=== PATIENT | female | born 1960 ===

== ENCOUNTER 2018-01-30 08:04 | Inpatient (IN) ==
[~2018-01-30 08:04] MED LIST: ACETAMINOPHEN 325 MG TABLET PO PRN; ONDANSETRON 4 MG/2 ML VIAL IV PRN; traMADol 50 MG TABLET PO PRN
[2018-01-30 11:05] LABS: Basophils # 0.1 10*3/uL (0.0-0.2); Basophils % 0.7 % (0.0-0.8); Eosinophils # 0.3 10*3/uL (0.0-0.87); Eosinophils % 3.3 % (0.00-10.9); Hematocrit 24.1 VOL% (35.7-47.0); Hemoglobin 7.6 GM/DL (12.0-16.0); Immature Granulocytes % 1.6 %; Immature Granulocytes Absolute 0.12 #; Lymphocytes # 1.7 10*3/uL (1.4-4.0); Lymphocytes % 23.3 % (21.3-54.2); Mean Corpuscular HGB Conc 31.5 GM/DL (32-36); Mean Corpuscular Hemoglobin 31 PG (27-34); Mean Platelet Volume 10.8 FL (9.6-12.0); Monocytes # 0.6 10*3/uL (0.11-0.8); Monocytes % 7.8 % (1.7-12.7); Neutrophils # 4.7 10*3/uL (1.4-7.4); Neutrophils % 63.3 % (38.7-73.9); Platelet Count 187 T/CUMM (130-400); Red Blood Count 2.46 MC/CUMM (3.8-5.5); Red Cell Distribution Width 14.3 % (9.3-17.3); White Blood Count 7.5 T/CUMM (4-12)
[2018-01-30 11:50] LABS: Bilirubin,Total 0.4 MG/DL (0.2-1.0); Calcium 6.7 MG/DL (8.5-10.1); Osmolality,Calculated 314.7 MOS/KG (273-304); Potassium 4.4 MMOL/L (3.5-5.1)
[2018-01-30 12:40] LABS: Hepatitis A Ab IgM Quant 0.11 Index; Hepatitis A Ab IgM Result Negative (Negative); Hepatitis B Core IgM Quant 0.32 Index; Hepatitis B Core IgM Result Negative (Negative); Hepatitis B Surface Ag Quant < 0.10 Index; Hepatitis B Surface Ag Result Negative (Negative); Hepatitis C Virus Ab Quant 0.25 Index; Hepatitis C Virus Ab Result Negative (Negative)
[2018-01-30] MEDS ORDERED: LIDOCAINE 1% 50 ML VIAL ONE (12:49)
[2018-01-30] MEDS ORDERED: BUPIVACAINE 0.25% 50 ML VIAL ONE (12:49)
[2018-01-30] MEDS ORDERED: HEPARIN 5,000 UNIT/1 ML VIAL ONE (12:49)
[2018-01-30] MEDS ORDERED: ceFAZolin 1,000 MG in SYRINGE 1 EACH IV ONE (13:00)
[2018-01-30] MEDS ORDERED: ceFAZolin 1,000 MG VIAL ONE (13:13)
[2018-01-30] MEDS ORDERED: ONDANSETRON 4 MG/2 ML VIAL ONE (13:55)
[2018-01-30] MEDS ORDERED: fentaNYL 100 MCG/2 ML VIAL ONE (13:55)
[2018-01-30] MEDS ORDERED: MIDAZOLAM 2 MG/2 ML VIAL ONE (13:55)
[2018-01-30] MEDS ORDERED: HEPARIN 10,000 UNIT/10 ML VIAL IV PRN (16:50)
[2018-01-30] MEDS ORDERED: GLUCAGON 1 MG VIAL IM PRN (18:23)
[2018-01-30] MEDS ORDERED: DEXTROSE 50% 25 GM/50 ML VIAL IV PRN (18:23)
[2018-01-30] MEDS: INSULIN REGULAR 100 UNIT/ML SUBCUT SCH ×2 (18:36→21:25)
[2018-01-30] MEDS: LATANOPROST 0.005% OPH SOLN 2.5 ML BOTTLE BOTH EYES SCH (21:44)
[2018-01-31] MEDS: INSULIN REGULAR 100 UNIT/ML SUBCUT SCH ×4 (07:27→21:06)
[2018-01-31] MEDS: FUROSEMIDE 80 MG TABLET PO SCH (13:00)
[2018-01-31] MEDS ORDERED: EPOETIN ALFA 10,000 UNIT/1 ML VIAL SUBCUT ONE (13:32)
[2018-01-31] MEDS: LATANOPROST 0.005% OPH SOLN 2.5 ML BOTTLE BOTH EYES SCH (21:06)
[2018-02-01 07:29] VITALS: BP 137/70
[2018-02-01] MEDS: INSULIN REGULAR 100 UNIT/ML SUBCUT SCH ×3 (07:56→18:59)
[2018-02-01] MEDS: FUROSEMIDE 80 MG TABLET PO SCH (08:59)
== END 2018-02-01 21:00 | disposition home or self-care (01) | DRG 699 ==
LOC: N.3E 08:48
PROVIDERS: ADMIT Internal Medicine Nephrology; ATTEND Internal Medicine Nephrology

== ENCOUNTER 2018-03-06 11:15 | Inpatient (IN) ==
[2018-03-06] MEDS ORDERED: DEXTROSE 50% 25 GM/50 ML VIAL IV PRN (15:38)
[2018-03-06] MEDS ORDERED: GLUCAGON 1 MG VIAL IM PRN (15:38)
[2018-03-06 16:22] LABS: Basophils % 0.8 % (0.0-0.8); Eosinophils # 0.2 10*3/uL (0.0-0.87); Eosinophils % 4.2 % (0.00-10.9); Hematocrit 32.9 VOL% (35.7-47.0); Hemoglobin 10.6 GM/DL (12.0-16.0); Immature Granulocytes % 0.6 %; Immature Granulocytes Absolute 0.03 #; Lymphocytes % 37.2 % (21.3-54.2); Mean Corpuscular HGB Conc 32.2 GM/DL (32-36); Mean Corpuscular Hemoglobin 32 PG (27-34); Mean Corpuscular Volume 97.6 FL (87-102); Mean Platelet Volume 10.7 FL (9.6-12.0); Monocytes # 0.5 10*3/uL (0.11-0.8); Monocytes % 10.1 % (1.7-12.7); Neutrophils # 2.5 10*3/uL (1.4-7.4); Neutrophils % 47.1 % (38.7-73.9); Platelet Count 187 T/CUMM (130-400); Red Blood Count 3.37 MC/CUMM (3.8-5.5); Red Cell Distribution Width 15.5 % (9.3-17.3); White Blood Count 5.2 T/CUMM (4-12)
[2018-03-06 16:43] LABS: Alanine Aminotransferase 24 U/L (13-56); Albumin 2.6 G/DL (3.4-5.0); Alkaline Phosphatase 138 U/L (45-117); Aspartate Amino Transferase 22 U/L (0-37); Bilirubin,Total < 0.39 MG/DL (0.2-1.0); Blood Urea Nitrogen 41 MG/DL (7-18); Calcium 8.7 MG/DL (8.5-10.1); Glucose 488 MG/DL (74-106); Osmolality,Calculated 301.1 MOS/KG (273-304); Potassium 3.3 MMOL/L (3.5-5.1); Sodium 135 MMOL/L (136-145); Total Protein 7.2 G/DL (6.4-8.3)
[2018-03-06] MEDS ORDERED: HEPARIN 10,000 UNIT/10 ML VIAL IV SCH (17:00)
[2018-03-06] MEDS: INSULIN REGULAR 100 UNIT/ML SUBCUT SCH ×2 (18:17→20:25)
[2018-03-06] MEDS: CALCIUM ACETATE 667 MG CAPSULE PO SCH (18:18)
[2018-03-06] MEDS: DOCUSATE SODIUM 100 MG CAPSULE PO SCH (20:25)
[2018-03-06] MEDS: LATANOPROST 0.005% OPH SOLN 2.5 ML BOTTLE BOTH EYES SCH (20:25)
[2018-03-06] MEDS: GABAPENTIN 100 MG CAPSULE PO SCH (20:25)
[2018-03-06] MEDS: SIMVASTATIN 40 MG TABLET PO SCH (20:25)
[2018-03-07] MEDS ORDERED: PROPOFOL 200 MG/20 ML VIAL IV ONE (08:43)
[2018-03-07] MEDS ORDERED: SEVOFLURANE 1 UNIT/15 MINUTE INH ONE (08:43)
[2018-03-07] MEDS ORDERED: fentaNYL 100 MCG/2 ML VIAL ONE (08:43)
[2018-03-07] MEDS ORDERED: MIDAZOLAM 2 MG/2 ML VIAL ONE (08:43)
[2018-03-07] MEDS ORDERED: ONDANSETRON 4 MG/2 ML VIAL ONE (08:44)
[2018-03-07] MEDS ORDERED: MORPHINE 4 MG/1 ML VIAL IV PRN (09:06)
[2018-03-07] MEDS ORDERED: ONDANSETRON 4 MG/2 ML VIAL IV PRN (09:06)
[2018-03-07] MEDS ORDERED: MAGNESIUM HYDROXIDE SUSP 30 ML UDCUP PO PRN (09:06)
[2018-03-07] MEDS ORDERED: POLYVINYL ALCOHOL 1.4% OPH SOLN 15 ML BOTTLE BOTH EYES PRN (09:13)
[2018-03-07] MEDS: GABAPENTIN 100 MG CAPSULE PO SCH ×2 (10:41→21:22)
[2018-03-07] MEDS: CALCIUM ACETATE 667 MG CAPSULE PO SCH ×3 (10:41→17:50)
[2018-03-07] MEDS: MULTIVITAMIN (BEROCCA) TABLET PO SCH (10:41)
[2018-03-07] MEDS: FOLIC ACID 1 MG TABLET PO SCH (10:41)
[2018-03-07] MEDS: MULTIVITAMIN (CENTRUM) TABLET PO SCH (10:41)
[2018-03-07] MEDS: INSULIN GLARGINE 100 UNIT/ML SUBCUT SCH (10:41)
[2018-03-07] MEDS: INSULIN REGULAR 100 UNIT/ML SUBCUT SCH ×4 (10:46→21:23)
[2018-03-07] MEDS: PIPERACILLIN/TAZOBACTAM 3,375 MG in SODIUM CHLORIDE 0.9% 100 ML IV SCH ×2 (11:33→23:20)
[2018-03-07] MEDS: ASPIRIN EC 81 MG TABLET PO SCH (11:33)
[2018-03-07] MEDS: INSULIN LISPRO 100 UNIT/ML SUBCUT SCH ×2 (14:05→17:49)
[2018-03-07] MEDS ORDERED: VANCOMYCIN INJ 750 MG in SODIUM CHLORIDE 0.9% 250 ML IV PRN (19:26)
[2018-03-07] MEDS ORDERED: LATANOPROST 0.005% OPH SOLN 2.5 ML BOTTLE BOTH EYES SCH (21:00)
[2018-03-07] MEDS ORDERED: VANCOMYCIN INJ 1,750 MG in SODIUM CHLORIDE 0.9% 500 ML IV ONE (21:00)
[2018-03-07] MEDS: SIMVASTATIN 40 MG TABLET PO SCH (21:23)
[2018-03-07] MEDS: DOCUSATE SODIUM 100 MG CAPSULE PO SCH (21:23)
[2018-03-08] MEDS: LATANOPROST 0.005% OPH SOLN 2.5 ML BOTTLE BOTH EYES SCH ×2 (03:33→21:01)
[2018-03-08] MEDS ORDERED: VANCOMYCIN INJ 1,750 MG in SODIUM CHLORIDE 0.9% 500 ML IV ONE (04:30)
[2018-03-08] MEDS: INSULIN REGULAR 100 UNIT/ML SUBCUT SCH ×4 (07:39→21:01)
[2018-03-08] MEDS: INSULIN LISPRO 100 UNIT/ML SUBCUT SCH ×3 (07:39→16:13)
[2018-03-08 09:27] LABS: Hepatitis B Surface Ag Quant < 0.10 Index; Hepatitis B Surface Ag Result Negative (Negative)
[2018-03-08] MEDS: CALCIUM ACETATE 667 MG CAPSULE PO SCH ×3 (09:29→18:01)
[2018-03-08] MEDS: INSULIN GLARGINE 100 UNIT/ML SUBCUT SCH (10:29)
[2018-03-08] MEDS: MULTIVITAMIN (BEROCCA) TABLET PO SCH (12:32)
[2018-03-08] MEDS: ASPIRIN EC 81 MG TABLET PO SCH (12:32)
[2018-03-08] MEDS: MULTIVITAMIN (CENTRUM) TABLET PO SCH (12:32)
[2018-03-08] MEDS: PIPERACILLIN/TAZOBACTAM 3,375 MG in SODIUM CHLORIDE 0.9% 100 ML IV SCH ×2 (12:33→22:44)
[2018-03-08] MEDS: FOLIC ACID 1 MG TABLET PO SCH (12:33)
[2018-03-08] MEDS: GABAPENTIN 100 MG CAPSULE PO SCH ×2 (12:33→21:01)
[2018-03-08] MEDS ORDERED: VANCOMYCIN INJ 750 MG in SODIUM CHLORIDE 0.9% 250 ML IV ONE (18:00)
[2018-03-08] MEDS: DOCUSATE SODIUM 100 MG CAPSULE PO SCH (21:00)
[2018-03-08] MEDS: SIMVASTATIN 40 MG TABLET PO SCH (21:01)
[2018-03-09] MEDS ORDERED: ERGOCALCIFEROL 50,000 UNIT CAPSULE PO SCH (09:00)
[2018-03-09] MEDS: INSULIN LISPRO 100 UNIT/ML SUBCUT SCH ×3 (09:11→16:40)
[2018-03-09] MEDS: CALCIUM ACETATE 667 MG CAPSULE PO SCH ×3 (09:12→16:41)
[2018-03-09] MEDS: MULTIVITAMIN (CENTRUM) TABLET PO SCH (09:12)
[2018-03-09] MEDS: INSULIN REGULAR 100 UNIT/ML SUBCUT SCH ×4 (09:12→22:10)
[2018-03-09] MEDS: MULTIVITAMIN (BEROCCA) TABLET PO SCH (09:13)
[2018-03-09] MEDS: INSULIN GLARGINE 100 UNIT/ML SUBCUT SCH (09:13)
[2018-03-09] MEDS: ASPIRIN EC 81 MG TABLET PO SCH (09:13)
[2018-03-09] MEDS: FOLIC ACID 1 MG TABLET PO SCH (09:13)
[2018-03-09] MEDS: GABAPENTIN 100 MG CAPSULE PO SCH ×2 (09:13→22:09)
[2018-03-09] MEDS: PIPERACILLIN/TAZOBACTAM 3,375 MG in SODIUM CHLORIDE 0.9% 100 ML IV SCH ×2 (10:30→22:19)
[2018-03-09] MEDS: SIMVASTATIN 40 MG TABLET PO SCH (22:10)
[2018-03-09] MEDS: DOCUSATE SODIUM 100 MG CAPSULE PO SCH (22:10)
[2018-03-09] MEDS: LATANOPROST 0.005% OPH SOLN 2.5 ML BOTTLE BOTH EYES SCH (22:14)
[2018-03-10] MEDS: INSULIN REGULAR 100 UNIT/ML SUBCUT SCH ×4 (08:53→20:22)
[2018-03-10] MEDS: INSULIN LISPRO 100 UNIT/ML SUBCUT SCH ×3 (08:53→17:50)
[2018-03-10] MEDS: FOLIC ACID 1 MG TABLET PO SCH (08:54)
[2018-03-10] MEDS: MULTIVITAMIN (CENTRUM) TABLET PO SCH (08:54)
[2018-03-10] MEDS: ASPIRIN EC 81 MG TABLET PO SCH (08:54)
[2018-03-10] MEDS: INSULIN GLARGINE 100 UNIT/ML SUBCUT SCH (08:54)
[2018-03-10] MEDS: MULTIVITAMIN (BEROCCA) TABLET PO SCH (08:54)
[2018-03-10] MEDS: CALCIUM ACETATE 667 MG CAPSULE PO SCH ×3 (08:54→17:50)
[2018-03-10] MEDS: GABAPENTIN 100 MG CAPSULE PO SCH ×2 (08:55→20:22)
[2018-03-10] MEDS: PIPERACILLIN/TAZOBACTAM 3,375 MG in SODIUM CHLORIDE 0.9% 100 ML IV SCH ×2 (11:29→21:38)
[2018-03-10] MEDS: LATANOPROST 0.005% OPH SOLN 2.5 ML BOTTLE BOTH EYES SCH (20:23)
[2018-03-10] MEDS: SIMVASTATIN 40 MG TABLET PO SCH (20:23)
[2018-03-10] MEDS: DOCUSATE SODIUM 100 MG CAPSULE PO SCH (20:23)
[2018-03-11] MEDS: INSULIN LISPRO 100 UNIT/ML SUBCUT SCH ×3 (10:22→17:23)
[2018-03-11] MEDS: INSULIN REGULAR 100 UNIT/ML SUBCUT SCH ×4 (10:22→20:51)
[2018-03-11] MEDS: CALCIUM ACETATE 667 MG CAPSULE PO SCH ×3 (10:22→17:21)
[2018-03-11] MEDS: GABAPENTIN 100 MG CAPSULE PO SCH ×2 (10:43→20:51)
[2018-03-11] MEDS: MULTIVITAMIN (BEROCCA) TABLET PO SCH (10:44)
[2018-03-11] MEDS: amLODIPine 2.5 MG TABLET PO SCH (10:44)
[2018-03-11] MEDS: MULTIVITAMIN (CENTRUM) TABLET PO SCH (10:44)
[2018-03-11] MEDS: FOLIC ACID 1 MG TABLET PO SCH (10:44)
[2018-03-11] MEDS: ASPIRIN EC 81 MG TABLET PO SCH (10:45)
[2018-03-11] MEDS: INSULIN GLARGINE 100 UNIT/ML SUBCUT SCH (10:45)
[2018-03-11] MEDS: PIPERACILLIN/TAZOBACTAM 3,375 MG in SODIUM CHLORIDE 0.9% 100 ML IV SCH ×2 (11:41→21:27)
[2018-03-11] MEDS ORDERED: VANCOMYCIN INJ 750 MG in SODIUM CHLORIDE 0.9% 250 ML IV ONE (16:00)
[2018-03-11] MEDS: cloNIDine 0.1 MG TABLET PO PRN (19:06)
[2018-03-11] MEDS: DOCUSATE SODIUM 100 MG CAPSULE PO SCH (20:51)
[2018-03-11] MEDS: LATANOPROST 0.005% OPH SOLN 2.5 ML BOTTLE BOTH EYES SCH (20:52)
[2018-03-12] MEDS: INSULIN REGULAR 100 UNIT/ML SUBCUT SCH ×3 (08:11→16:05)
[2018-03-12] MEDS: CALCIUM ACETATE 667 MG CAPSULE PO SCH ×3 (08:56→16:58)
[2018-03-12] MEDS: amLODIPine 2.5 MG TABLET PO SCH (08:56)
[2018-03-12] MEDS: ASPIRIN EC 81 MG TABLET PO SCH (08:56)
[2018-03-12] MEDS: GABAPENTIN 100 MG CAPSULE PO SCH (08:56)
[2018-03-12] MEDS: INSULIN LISPRO 100 UNIT/ML SUBCUT SCH ×3 (08:56→16:05)
[2018-03-12] MEDS: MULTIVITAMIN (CENTRUM) TABLET PO SCH (08:56)
[2018-03-12] MEDS: MULTIVITAMIN (BEROCCA) TABLET PO SCH (08:56)
[2018-03-12] MEDS: INSULIN GLARGINE 100 UNIT/ML SUBCUT SCH (08:56)
[2018-03-12] MEDS: FOLIC ACID 1 MG TABLET PO SCH (08:56)
[2018-03-12] MEDS: PIPERACILLIN/TAZOBACTAM 3,375 MG in SODIUM CHLORIDE 0.9% 100 ML IV SCH (10:39)
[2018-03-12] MEDS: cloNIDine 0.1 MG TABLET PO PRN (16:05)
[2018-03-12 18:23] VITALS: BP 144/68
== END 2018-03-12 18:20 | disposition home or self-care (01) | DRG 988 ==
LOC: N.5E 14:02 → N.3E 03-07 16:43
PROVIDERS: ADMIT Orthopaedic Surgery; ATTEND Orthopaedic Surgery

== ENCOUNTER 2018-06-16 17:32 | Inpatient (IN) ==
[2018-06-16] MEDS ORDERED: hydrALAZINE 20 MG/1 ML VIAL IV STA (18:03)
[2018-06-16 18:29] LABS: Basophils % 0.6 % (0.0-0.8); Eosinophils # 0.2 10*3/uL (0.0-0.87); Eosinophils % 2.9 % (0.00-10.9); Hematocrit 30.3 VOL% (35.7-47.0); Hemoglobin 10.2 GM/DL (12.0-16.0); Immature Granulocytes % 0.4 %; Immature Granulocytes Absolute 0.03 #; Lymphocytes # 2.1 10*3/uL (1.4-4.0); Lymphocytes % 29.6 % (21.3-54.2); Mean Corpuscular HGB Conc 33.7 GM/DL (32-36); Mean Corpuscular Hemoglobin 31 PG (27-34); Mean Corpuscular Volume 92.4 FL (87-102); Mean Platelet Volume 9.9 FL (9.6-12.0); Monocytes # 0.8 10*3/uL (0.11-0.8); Monocytes % 11.3 % (1.7-12.7); Neutrophils % 55.2 % (38.7-73.9); Platelet Count 279 T/CUMM (130-400); Red Blood Count 3.28 MC/CUMM (3.8-5.5); Red Cell Distribution Width 17.8 % (9.3-17.3); White Blood Count 7.2 T/CUMM (4-12)
[2018-06-16] MEDS ORDERED: GLUCAGON 1 MG VIAL IM PRN ×2 (18:56)
[2018-06-16] MEDS ORDERED: ONDANSETRON 4 MG/2 ML VIAL IV PRN (18:56)
[2018-06-16] MEDS ORDERED: DEXTROSE 50% 25 GM/50 ML VIAL IV PRN ×2 (18:56)
[2018-06-16] MEDS ORDERED: POLYVINYL ALCOHOL 1.4% OPH SOLN 15 ML BOTTLE BOTH EYES PRN (19:05)
[2018-06-16 19:23] LABS: PT Patient Result 10.8 SECS; Partial Thromboplastin Time 33.2 SECS (0-40)
[2018-06-16] MEDS: hydrALAZINE 20 MG/1 ML VIAL IV PRN (20:05)
[2018-06-16] MEDS ORDERED: LATANOPROST 0.005% OPH SOLN 2.5 ML BOTTLE BOTH EYES SCH (21:00)
[2018-06-16] MEDS: DOCUSATE SODIUM 100 MG CAPSULE PO SCH (21:49)
[2018-06-16] MEDS: GABAPENTIN 100 MG CAPSULE PO SCH (21:50)
[2018-06-16] MEDS: INSULIN REGULAR 100 UNIT/ML SUBCUT SCH ×2 (21:50→21:55)
[2018-06-16] MEDS: INSULIN LISPRO 100 UNIT/ML SUBCUT SCH ×2 (21:50→21:55)
[2018-06-16] MEDS: FUROSEMIDE 80 MG TABLET PO SCH (21:50)
[2018-06-16] MEDS: LATANOPROST 0.005% OPH SOLN 2.5 ML BOTTLE BOTH EYES SCH (23:06)
[2018-06-17 07:53] LABS: Basophils % 0.5 % (0.0-0.8); Eosinophils # 0.2 10*3/uL (0.0-0.87); Eosinophils % 2.3 % (0.00-10.9); Hematocrit 30.1 VOL% (35.7-47.0); Hemoglobin 9.8 GM/DL (12.0-16.0); Immature Granulocytes % 0.5 %; Immature Granulocytes Absolute 0.04 #; Lymphocytes # 2.5 10*3/uL (1.4-4.0); Lymphocytes % 30.4 % (21.3-54.2); Mean Corpuscular HGB Conc 32.6 GM/DL (32-36); Mean Corpuscular Hemoglobin 31 PG (27-34); Mean Corpuscular Volume 95.3 FL (87-102); Mean Platelet Volume 10.1 FL (9.6-12.0); Monocytes # 0.7 10*3/uL (0.11-0.8); Monocytes % 8.8 % (1.7-12.7); Neutrophils # 4.7 10*3/uL (1.4-7.4); Neutrophils % 57.5 % (38.7-73.9); Platelet Count 268 T/CUMM (130-400); Red Blood Count 3.16 MC/CUMM (3.8-5.5); Red Cell Distribution Width 18.2 % (9.3-17.3); White Blood Count 8.2 T/CUMM (4-12)
[2018-06-17 08:11] LABS: Albumin 2.4 G/DL (3.4-5.0); Bilirubin,Total 0.4 MG/DL (0.2-1.0); Calcium 8.7 MG/DL (8.5-10.1); Total Protein 7.1 G/DL (6.4-8.3)
[2018-06-17 08:12] LABS: Osmolality,Calculated 295.4 MOS/KG (273-304); Potassium 3.5 MMOL/L (3.5-5.1)
[2018-06-17 08:17] LABS: PT Patient Result 10.8 SECS; Partial Thromboplastin Time 32.9 SECS (0-40)
[2018-06-17] MEDS ORDERED: MULTIVITAMIN (CENTRUM) TABLET PO SCH (09:00)
[2018-06-17] MEDS ORDERED: CARVEDILOL 3.125 MG TABLET PO SCH (09:00)
[2018-06-17] MEDS ORDERED: ERGOCALCIFEROL 50,000 UNIT CAPSULE PO SCH (09:00)
[2018-06-17] MEDS: INSULIN GLARGINE 100 UNIT/ML SUBCUT SCH (09:02)
[2018-06-17] MEDS: INSULIN REGULAR 100 UNIT/ML SUBCUT SCH ×4 (09:02→20:50)
[2018-06-17] MEDS: INSULIN LISPRO 100 UNIT/ML SUBCUT SCH ×2 (09:03→16:18)
[2018-06-17] MEDS: hydrALAZINE 20 MG/1 ML VIAL IV PRN ×2 (09:03→11:18)
[2018-06-17] MEDS: PANTOPRAZOLE 40 MG TABLET PO SCH (09:04)
[2018-06-17] MEDS: CALCIUM ACETATE 667 MG CAPSULE PO SCH ×3 (09:04→16:19)
[2018-06-17] MEDS: GABAPENTIN 100 MG CAPSULE PO SCH ×2 (09:04→20:49)
[2018-06-17] MEDS: FUROSEMIDE 80 MG TABLET PO SCH ×2 (09:04→20:49)
[2018-06-17] MEDS: ASPIRIN EC 81 MG TABLET PO SCH (09:04)
[2018-06-17] MEDS: MULTIVITAMIN (BEROCCA) TABLET PO SCH (09:04)
[2018-06-17] MEDS: FOLIC ACID 1 MG TABLET PO SCH (09:04)
[2018-06-17 12:07] LABS: Hematocrit 30.7 VOL% (35.7-47.0); Hemoglobin 10.1 GM/DL (12.0-16.0)
[2018-06-17] MEDS ORDERED: ACETAMINOPHEN 325 MG TABLET PO PRN (12:23)
[2018-06-17] MEDS ORDERED: NIFEdipine 10 MG CAPSULE PO PRN (13:36)
[2018-06-17] MEDS: CARVEDILOL 6.25 MG TABLET PO SCH ×2 (13:44→20:49)
[2018-06-17] MEDS: DOCUSATE SODIUM 100 MG CAPSULE PO SCH (20:49)
[2018-06-17] MEDS: LATANOPROST 0.005% OPH SOLN 2.5 ML BOTTLE BOTH EYES SCH (20:54)
[2018-06-18 07:02] LABS: Basophils % 0.6 % (0.0-0.8); Eosinophils # 0.2 10*3/uL (0.0-0.87); Eosinophils % 2.9 % (0.00-10.9); Hematocrit 28.2 VOL% (35.7-47.0); Hemoglobin 9.2 GM/DL (12.0-16.0); Immature Granulocytes % 0.6 %; Immature Granulocytes Absolute 0.04 #; Lymphocytes # 2.5 10*3/uL (1.4-4.0); Lymphocytes % 34.3 % (21.3-54.2); Mean Corpuscular HGB Conc 32.6 GM/DL (32-36); Mean Corpuscular Hemoglobin 31 PG (27-34); Mean Platelet Volume 10.5 FL (9.6-12.0); Monocytes # 0.8 10*3/uL (0.11-0.8); Monocytes % 11.2 % (1.7-12.7); Neutrophils # 3.7 10*3/uL (1.4-7.4); Neutrophils % 50.4 % (38.7-73.9); Platelet Count 247 T/CUMM (130-400); Red Cell Distribution Width 18.5 % (9.3-17.3); White Blood Count 7.2 T/CUMM (4-12)
[2018-06-18 07:39] LABS: Albumin 2.2 G/DL (3.4-5.0); Bilirubin,Total 0.6 MG/DL (0.2-1.0); Calcium 8.5 MG/DL (8.5-10.1); Osmolality,Calculated 283.5 MOS/KG (273-304); Potassium 3.5 MMOL/L (3.5-5.1); Total Protein 6.6 G/DL (6.4-8.3)
[2018-06-18] MEDS ORDERED: DAPTOmycin 500 MG VIAL IV SCH (09:00)
[2018-06-18] MEDS: FOLIC ACID 1 MG TABLET PO SCH (09:33)
[2018-06-18] MEDS: GABAPENTIN 100 MG CAPSULE PO SCH ×2 (09:33→21:04)
[2018-06-18] MEDS: CARVEDILOL 6.25 MG TABLET PO SCH ×2 (09:33→21:04)
[2018-06-18] MEDS: PANTOPRAZOLE 40 MG TABLET PO SCH (09:33)
[2018-06-18] MEDS: CALCIUM ACETATE 667 MG CAPSULE PO SCH ×3 (09:33→16:26)
[2018-06-18] MEDS: MULTIVITAMIN (BEROCCA) TABLET PO SCH (09:33)
[2018-06-18] MEDS: FUROSEMIDE 80 MG TABLET PO SCH ×2 (09:33→21:03)
[2018-06-18] MEDS: ASPIRIN EC 81 MG TABLET PO SCH (09:33)
[2018-06-18] MEDS: INSULIN REGULAR 100 UNIT/ML SUBCUT SCH ×4 (09:34→21:03)
[2018-06-18] MEDS: INSULIN LISPRO 100 UNIT/ML SUBCUT SCH ×3 (09:34→16:24)
[2018-06-18] MEDS: INSULIN GLARGINE 100 UNIT/ML SUBCUT SCH (09:35)
[2018-06-18] MEDS ORDERED: HEPARIN 5,000 UNIT/1 ML VIAL ONE (11:53)
[2018-06-18] MEDS ORDERED: BUPIVACAINE 0.25% /EPI 10 ML VIAL ONE (11:53)
[2018-06-18] MEDS ORDERED: LIDOCAINE 1%/EPI INJ 20 ML VIAL ONE (11:53)
[2018-06-18] MEDS ORDERED: TISSUE ADHESIVE 1 EACH APPLICATOR TOP ONE (11:53)
[2018-06-18] MEDS ORDERED: PROPOFOL 200 MG/20 ML VIAL IV ONE (13:38)
[2018-06-18] MEDS ORDERED: MIDAZOLAM 2 MG/2 ML VIAL ONE (13:38)
[2018-06-18] MEDS ORDERED: fentaNYL 100 MCG/2 ML VIAL ONE (13:39)
[2018-06-18] MEDS ORDERED: ONDANSETRON 4 MG/2 ML VIAL ONE (13:39)
[2018-06-18] MEDS ORDERED: SODIUM CHLORIDE 0.9% 100 ML IV ONE (13:39)
[2018-06-18] MEDS ORDERED: DEXAMETHASONE 10 MG/1 ML VIAL ONE (13:39)
[2018-06-18] MEDS: DOCUSATE SODIUM 100 MG CAPSULE PO SCH (21:03)
[2018-06-18] MEDS: LATANOPROST 0.005% OPH SOLN 2.5 ML BOTTLE BOTH EYES SCH (21:05)
[2018-06-19 06:51] LABS: Basophils # 0.1 10*3/uL (0.0-0.2); Basophils % 0.6 % (0.0-0.8); Eosinophils # 0.4 10*3/uL (0.0-0.87); Eosinophils % 3.9 % (0.00-10.9); Hematocrit 27.4 VOL% (35.7-47.0); Hemoglobin 8.8 GM/DL (12.0-16.0); Immature Granulocytes % 0.8 %; Immature Granulocytes Absolute 0.07 #; Lymphocytes # 2.7 10*3/uL (1.4-4.0); Lymphocytes % 30.1 % (21.3-54.2); Mean Corpuscular HGB Conc 32.1 GM/DL (32-36); Mean Corpuscular Hemoglobin 31 PG (27-34); Mean Corpuscular Volume 95.8 FL (87-102); Mean Platelet Volume 10.3 FL (9.6-12.0); Monocytes # 0.9 10*3/uL (0.11-0.8); Monocytes % 9.6 % (1.7-12.7); Platelet Count 233 T/CUMM (130-400); Red Blood Count 2.86 MC/CUMM (3.8-5.5); Red Cell Distribution Width 17.3 % (9.3-17.3)
[2018-06-19] MEDS: FUROSEMIDE 80 MG TABLET PO SCH ×2 (08:55→21:00)
[2018-06-19] MEDS: CARVEDILOL 6.25 MG TABLET PO SCH ×2 (08:55→21:01)
[2018-06-19] MEDS: ASPIRIN EC 81 MG TABLET PO SCH (08:55)
[2018-06-19] MEDS: FOLIC ACID 1 MG TABLET PO SCH (08:55)
[2018-06-19] MEDS: PANTOPRAZOLE 40 MG TABLET PO SCH (08:55)
[2018-06-19] MEDS: INSULIN REGULAR 100 UNIT/ML SUBCUT SCH ×4 (08:55→21:00)
[2018-06-19] MEDS: MULTIVITAMIN (BEROCCA) TABLET PO SCH (08:55)
[2018-06-19] MEDS: CALCIUM ACETATE 667 MG CAPSULE PO SCH ×3 (08:55→17:15)
[2018-06-19] MEDS: GABAPENTIN 100 MG CAPSULE PO SCH ×2 (08:55→21:00)
[2018-06-19] MEDS: INSULIN GLARGINE 100 UNIT/ML SUBCUT SCH (08:58)
[2018-06-19] MEDS: INSULIN LISPRO 100 UNIT/ML SUBCUT SCH ×3 (09:01→17:16)
[2018-06-19] MEDS ORDERED: BISACODYL 5 MG TABLET PO ONE (12:01)
[2018-06-19] MEDS ORDERED: POLYETHYLENE GLYCOL POWDER 255 GM BOTTLE PO ONE (12:01)
[2018-06-19] MEDS: DOCUSATE SODIUM 100 MG CAPSULE PO SCH (21:00)
[2018-06-19] MEDS: LATANOPROST 0.005% OPH SOLN 2.5 ML BOTTLE BOTH EYES SCH (21:01)
[2018-06-20 07:47] LABS: Basophils % 0.5 % (0.0-0.8); Eosinophils # 0.3 10*3/uL (0.0-0.87); Eosinophils % 3.3 % (0.00-10.9); Hematocrit 27.4 VOL% (35.7-47.0); Hemoglobin 8.7 GM/DL (12.0-16.0); Immature Granulocytes % 0.5 %; Immature Granulocytes Absolute 0.04 #; Lymphocytes % 39.2 % (21.3-54.2); Mean Corpuscular HGB Conc 31.8 GM/DL (32-36); Mean Corpuscular Hemoglobin 30 PG (27-34); Mean Corpuscular Volume 95.8 FL (87-102); Mean Platelet Volume 10.5 FL (9.6-12.0); Monocytes # 0.7 10*3/uL (0.11-0.8); Monocytes % 9.4 % (1.7-12.7); Neutrophils # 3.6 10*3/uL (1.4-7.4); Neutrophils % 47.1 % (38.7-73.9); Platelet Count 233 T/CUMM (130-400); Red Blood Count 2.86 MC/CUMM (3.8-5.5); Red Cell Distribution Width 17.6 % (9.3-17.3); White Blood Count 7.6 T/CUMM (4-12)
[2018-06-20] MEDS: INSULIN REGULAR 100 UNIT/ML SUBCUT SCH ×3 (09:57→17:31)
[2018-06-20] MEDS: INSULIN LISPRO 100 UNIT/ML SUBCUT SCH ×3 (09:57→17:32)
[2018-06-20] MEDS: CALCIUM ACETATE 667 MG CAPSULE PO SCH ×3 (09:58→17:32)
[2018-06-20] MEDS: PANTOPRAZOLE 40 MG TABLET PO SCH (09:58)
[2018-06-20] MEDS: GABAPENTIN 100 MG CAPSULE PO SCH (09:58)
[2018-06-20] MEDS: CARVEDILOL 6.25 MG TABLET PO SCH (09:58)
[2018-06-20] MEDS: MULTIVITAMIN (BEROCCA) TABLET PO SCH (09:59)
[2018-06-20] MEDS: FOLIC ACID 1 MG TABLET PO SCH (09:59)
[2018-06-20] MEDS: INSULIN GLARGINE 100 UNIT/ML SUBCUT SCH (09:59)
[2018-06-20] MEDS: FUROSEMIDE 80 MG TABLET PO SCH (09:59)
[2018-06-20] MEDS: ASPIRIN EC 81 MG TABLET PO SCH (09:59)
[2018-06-20 13:59] VITALS: BP 152/76
== END 2018-06-20 19:47 | disposition home or self-care (01) | DRG 814 ==
LOC: EDBD → EDUNIT# → N.ED 17:32 → SUATTDRO 18:40 → N.EDINP 18:40 → N.CC 19:33 → N.5E 06-17 17:51
PROVIDERS: ADMIT Internal Medicine; ATTEND Hospitalist

== ENCOUNTER 2018-10-09 11:40 | Inpatient (IN) ==
[2018-10-09] MEDS ORDERED: ONDANSETRON 4 MG/2 ML VIAL IV STA (12:45)
[2018-10-09] MEDS ORDERED: cefTRIAXone 1,000 MG in SODIUM CHLORIDE 0.9% 100 ML IV STA (12:45)
[2018-10-09] MEDS ORDERED: ALBUTEROL/IPRATROPIUM 3 ML NEB RESP TX STA (12:45)
[2018-10-09 13:29] LABS: Basophils % 0.2 % (0.0-0.8); Hematocrit 27.4 VOL% (35.7-47.0); Immature Granulocytes % 5.1 %; Immature Granulocytes Absolute 0.99 #; Lymphocytes # 1.8 10*3/uL (1.4-4.0); Lymphocytes % 9.5 % (21.3-54.2); Mean Corpuscular HGB Conc 32.8 GM/DL (32-36); Mean Corpuscular Hemoglobin 31 PG (27-34); Mean Corpuscular Volume 94.5 FL (87-102); Mean Platelet Volume 11.4 FL (9.6-12.0); Monocytes # 0.4 10*3/uL (0.11-0.8); Monocytes % 2.1 % (1.7-12.7); Neutrophils % 83.1 % (38.7-73.9); Platelet Count 114 T/CUMM (130-400); Red Cell Distribution Width 16.3 % (9.3-17.3); White Blood Count 19.3 T/CUMM (4-12)
[2018-10-09 13:38] LABS: PT Patient Result 11.3 SECS
[2018-10-09 14:11] LABS: Albumin 2.6 G/DL (3.4-5.0); Bilirubin,Total 0.8 MG/DL (0.2-1.0); Calcium 8.5 MG/DL (8.5-10.1); Potassium 3.9 MMOL/L (3.5-5.1); Total Protein 7.1 G/DL (6.4-8.3)
[2018-10-09] MEDS ORDERED: VANCOMYCIN INJ 1,000 MG in SODIUM CHLORIDE 0.9% 250 ML IV STA (14:34)
[2018-10-09 15:45] LABS: Band Neutrophils 4 % (0-10); Lymphocytes 11 % (20-55); Segmented Neutrophils 80 % (50-85); Total Cells Counted 100
[2018-10-09 15:46] LABS: Anisocytosis Slight; Macrocytosis Slight
[2018-10-09 15:47] LABS: Platelet Estimate Adequate
[2018-10-09] MEDS ORDERED: DEXTROSE 50% 25 GM/50 ML VIAL IV PRN (16:40)
[2018-10-09] MEDS ORDERED: GLUCAGON 1 MG VIAL IM PRN (16:40)
[2018-10-09] MEDS ORDERED: ONDANSETRON 4 MG/2 ML VIAL IV PRN (16:40)
[2018-10-09] MEDS ORDERED: CARBOXYMETHYLCELLULOSE 1% OPH SOLN BOTH EYES PRN (16:43)
[2018-10-09] MEDS: ALBUTEROL/IPRATROPIUM 3 ML NEB RESP TX SCH (18:50)
[2018-10-09] MEDS: INSULIN LISPRO 100 UNIT/ML SUBCUT SCH (21:00)
[2018-10-09] MEDS: ACETAMINOPHEN 325 MG TABLET PO PRN (21:06)
[2018-10-09] MEDS: DOCUSATE SODIUM 100 MG CAPSULE PO SCH (21:07)
[2018-10-09] MEDS: NIFEdipine 10 MG CAPSULE PO SCH (21:08)
[2018-10-09] MEDS: GABAPENTIN 100 MG CAPSULE PO SCH (21:08)
[2018-10-09] MEDS: SIMVASTATIN 40 MG TABLET PO SCH (21:09)
[2018-10-09] MEDS: FUROSEMIDE 80 MG TABLET PO SCH (21:11)
[2018-10-09] MEDS: LATANOPROST 0.005% OPH SOLN 2.5 ML BOTTLE BOTH EYES SCH (22:13)
[2018-10-10] MEDS: ALBUTEROL/IPRATROPIUM 3 ML NEB RESP TX SCH ×4 (00:38→19:24)
[2018-10-10] MEDS: ACETAMINOPHEN 325 MG TABLET PO PRN ×3 (02:37→15:51)
[2018-10-10 06:20] LABS: Basophils % 0.2 % (0.0-0.8); Eosinophils # 0.1 10*3/uL (0.0-0.87); Eosinophils % 0.9 % (0.00-10.9); Hematocrit 26.2 VOL% (35.7-47.0); Hemoglobin 8.2 GM/DL (12.0-16.0); Immature Granulocytes % 0.8 %; Immature Granulocytes Absolute 0.12 #; Lymphocytes # 2.1 10*3/uL (1.4-4.0); Lymphocytes % 14.3 % (21.3-54.2); Mean Corpuscular HGB Conc 31.3 GM/DL (32-36); Mean Corpuscular Hemoglobin 30 PG (27-34); Mean Corpuscular Volume 96.3 FL (87-102); Mean Platelet Volume 11.9 FL (9.6-12.0); Monocytes # 0.4 10*3/uL (0.11-0.8); Monocytes % 2.5 % (1.7-12.7); Neutrophils # 11.8 10*3/uL (1.4-7.4); Neutrophils % 81.3 % (38.7-73.9); Platelet Count 110 T/CUMM (130-400); Red Blood Count 2.72 MC/CUMM (3.8-5.5); Red Cell Distribution Width 16.4 % (9.3-17.3); White Blood Count 14.5 T/CUMM (4-12)
[2018-10-10 06:43] LABS: Calcium 8.6 MG/DL (8.5-10.1); Risk Ratio 4.71; Thyroid Stimulating Hormone 0.878 uIU/ml (0.358-3.74); VLDL CHOLESTEROL 51.8 MG/DL
[2018-10-10] MEDS: INSULIN LISPRO 100 UNIT/ML SUBCUT SCH ×4 (09:01→20:51)
[2018-10-10] MEDS: cefTRIAXone 1,000 MG in SYRINGE 1 EACH IV SCH (09:02)
[2018-10-10] MEDS: INSULIN GLARGINE 100 UNIT/ML SUBCUT SCH (09:02)
[2018-10-10] MEDS: MULTIVITAMIN (CENTRUM) TABLET PO SCH (09:03)
[2018-10-10] MEDS: GABAPENTIN 100 MG CAPSULE PO SCH ×2 (09:03→20:52)
[2018-10-10] MEDS: PANTOPRAZOLE 40 MG TABLET PO SCH (09:03)
[2018-10-10] MEDS: ASPIRIN CHEW 81 MG TABLET PO SCH (09:03)
[2018-10-10] MEDS: FUROSEMIDE 80 MG TABLET PO SCH ×2 (09:03→20:52)
[2018-10-10] MEDS: FOLIC ACID 1 MG TABLET PO SCH (09:03)
[2018-10-10] MEDS: CARVEDILOL 6.25 MG TABLET PO SCH (09:03)
[2018-10-10] MEDS: NIFEdipine 10 MG CAPSULE PO SCH ×3 (09:03→20:52)
[2018-10-10] MEDS: SIMVASTATIN 40 MG TABLET PO SCH (20:51)
[2018-10-10] MEDS: DOCUSATE SODIUM 100 MG CAPSULE PO SCH (20:52)
[2018-10-10] MEDS: LATANOPROST 0.005% OPH SOLN 2.5 ML BOTTLE BOTH EYES SCH (20:52)
[2018-10-11] MEDS: ALBUTEROL/IPRATROPIUM 3 ML NEB RESP TX SCH ×5 (00:07→23:57)
[2018-10-11 04:30] LABS: Basophils % 0.2 % (0.0-0.8); Eosinophils # 0.2 10*3/uL (0.0-0.87); Eosinophils % 2.9 % (0.00-10.9); Hematocrit 27.2 VOL% (35.7-47.0); Hemoglobin 8.8 GM/DL (12.0-16.0); Immature Granulocytes Absolute 0.08 #; Lymphocytes # 1.6 10*3/uL (1.4-4.0); Lymphocytes % 20.1 % (21.3-54.2); Mean Corpuscular HGB Conc 32.4 GM/DL (32-36); Mean Corpuscular Hemoglobin 30 PG (27-34); Mean Corpuscular Volume 94.1 FL (87-102); Mean Platelet Volume 12.1 FL (9.6-12.0); Monocytes # 0.4 10*3/uL (0.11-0.8); Monocytes % 5.2 % (1.7-12.7); Neutrophils # 5.7 10*3/uL (1.4-7.4); Neutrophils % 70.6 % (38.7-73.9); Platelet Count 118 T/CUMM (130-400); Red Blood Count 2.89 MC/CUMM (3.8-5.5); Red Cell Distribution Width 15.7 % (9.3-17.3)
[2018-10-11 04:40] LABS: Calcium 8.9 MG/DL (8.5-10.1); Potassium 4.1 MMOL/L (3.5-5.1)
[2018-10-11] MEDS: guaiFENesin/CODEINE 5 ML LIQUID PO PRN ×2 (05:35→21:29)
[2018-10-11] MEDS: NIFEdipine 10 MG CAPSULE PO SCH ×3 (09:12→21:29)
[2018-10-11] MEDS: FOLIC ACID 1 MG TABLET PO SCH (09:12)
[2018-10-11] MEDS: FUROSEMIDE 80 MG TABLET PO SCH ×2 (09:13→21:30)
[2018-10-11] MEDS: MULTIVITAMIN (CENTRUM) TABLET PO SCH (09:13)
[2018-10-11] MEDS: GABAPENTIN 100 MG CAPSULE PO SCH ×2 (09:13→21:29)
[2018-10-11] MEDS: PANTOPRAZOLE 40 MG TABLET PO SCH (09:13)
[2018-10-11] MEDS: INSULIN LISPRO 100 UNIT/ML SUBCUT SCH ×3 (09:13→18:29)
[2018-10-11] MEDS: CARVEDILOL 6.25 MG TABLET PO SCH (09:13)
[2018-10-11] MEDS: INSULIN GLARGINE 100 UNIT/ML SUBCUT SCH (09:13)
[2018-10-11] MEDS: ASPIRIN CHEW 81 MG TABLET PO SCH (09:13)
[2018-10-11] MEDS: cefTRIAXone 1,000 MG in SYRINGE 1 EACH IV SCH (09:14)
[2018-10-11] MEDS ORDERED: EPOETIN ALFA 10,000 UNIT/1 ML VIAL IV PRN (10:28)
[2018-10-11] MEDS: AZITHROMYCIN INJ 500 MG in SODIUM CHLORIDE 0.9% 250 ML IV SCH (12:38)
[2018-10-11] MEDS ORDERED: HEPARIN 10,000 UNIT/10 ML VIAL IV PRN (15:42)
[2018-10-11] MEDS: DOCUSATE SODIUM 100 MG CAPSULE PO SCH (21:29)
[2018-10-11] MEDS: SIMVASTATIN 40 MG TABLET PO SCH (21:30)
[2018-10-11] MEDS: LATANOPROST 0.005% OPH SOLN 2.5 ML BOTTLE BOTH EYES SCH (21:31)
[2018-10-12] MEDS: INSULIN LISPRO 100 UNIT/ML SUBCUT SCH ×4 (01:40→13:46)
[2018-10-12 04:04] LABS: Basophils % 0.3 % (0.0-0.8); Eosinophils # 0.1 10*3/uL (0.0-0.87); Eosinophils % 1.5 % (0.00-10.9); Hematocrit 28.3 VOL% (35.7-47.0); Hemoglobin 9.1 GM/DL (12.0-16.0); Immature Granulocytes % 1.1 %; Immature Granulocytes Absolute 0.07 #; Lymphocytes # 1.4 10*3/uL (1.4-4.0); Lymphocytes % 22.8 % (21.3-54.2); Mean Corpuscular HGB Conc 32.2 GM/DL (32-36); Mean Corpuscular Hemoglobin 31 PG (27-34); Mean Platelet Volume 12.4 FL (9.6-12.0); Monocytes # 0.5 10*3/uL (0.11-0.8); Monocytes % 8.8 % (1.7-12.7); Neutrophils % 65.5 % (38.7-73.9); Platelet Count 132 T/CUMM (130-400); Red Blood Count 2.98 MC/CUMM (3.8-5.5); Red Cell Distribution Width 15.6 % (9.3-17.3); White Blood Count 6.1 T/CUMM (4-12)
[2018-10-12 04:23] LABS: Calcium 8.6 MG/DL (8.5-10.1); Osmolality,Calculated 291.2 MOS/KG (273-304)
[2018-10-12] MEDS: ALBUTEROL/IPRATROPIUM 3 ML NEB RESP TX SCH ×2 (07:30→14:04)
[2018-10-12] MEDS: cefTRIAXone 1,000 MG in SYRINGE 1 EACH IV SCH (10:06)
[2018-10-12] MEDS: PANTOPRAZOLE 40 MG TABLET PO SCH (10:06)
[2018-10-12] MEDS: FUROSEMIDE 80 MG TABLET PO SCH (10:06)
[2018-10-12] MEDS: FOLIC ACID 1 MG TABLET PO SCH (10:07)
[2018-10-12] MEDS: NIFEdipine 10 MG CAPSULE PO SCH ×2 (10:07→15:17)
[2018-10-12] MEDS: ASPIRIN CHEW 81 MG TABLET PO SCH (10:07)
[2018-10-12] MEDS: GABAPENTIN 100 MG CAPSULE PO SCH (10:07)
[2018-10-12] MEDS: MULTIVITAMIN (CENTRUM) TABLET PO SCH (10:07)
[2018-10-12] MEDS: CARVEDILOL 6.25 MG TABLET PO SCH (10:07)
[2018-10-12] MEDS: INSULIN GLARGINE 100 UNIT/ML SUBCUT SCH (10:08)
[2018-10-12] MEDS: AZITHROMYCIN INJ 500 MG in SODIUM CHLORIDE 0.9% 250 ML IV SCH (10:08)
[2018-10-12 13:02] VITALS: BP 117/67
== END 2018-10-12 14:51 | disposition home or self-care (01) | DRG 193 ==
LOC: EDUNIT# → EDBD → N.ED 11:40 → N.EDINP 15:39 → N.5E 16:41
PROVIDERS: ADMIT Internal Medicine; ATTEND Internal Medicine